=== PATIENT | female | born 1970 | race Caucasian/White ===

== ENCOUNTER 2017-08-25 00:15 | Emergency (ER) | payer OTHER, BC, SELFPAY ==
[2017-08-25 00:18] VITALS: BP 147/74; PULSE 93; RESP 16; TEMP 36.3; O2SAT 98; BMI 23.0
--- NOTE | 2017-08-25 00:52 | ED.RN ---
this rn went to see pt. corporate care worker at bedside. will return to bedside shortly.
--- NOTE | 2017-08-25 01:39 | RAD_ITS ---
STUDY: X-RAY - LEFT HAND REASON FOR EXAM: Female, 47 years old. Pain left thumb. TECHNIQUE: 3 view(s) of the hand. COMPARISON: None. FINDINGS: Normal radiocarpal articulation. Normal distal radioulnar joint. Normal visualized carpal bones. Normal carpal articulations Normal carpometacarpal articulation of the thumb. Normal second through fifth carpometacarpal joints. Normal metacarpi. Normal metacarpophalangeal joint of the thumb. Normal interphalangeal joint of the thumb. Normal proximal and distal phalanges of the thumb. Normal metacarpophalangeal joints of the second through fifth fingers. Normal proximal and distal interphalangeal joints of the second through fifth fingers. Normal phalanges of the second through fifth fingers. The soft tissue structures are unremarkable. RAD/Hand Min 3 Views IMPRESSION: Normal x-ray examination of the hand. The thumb is normal. Electronically Signed: Lewis Parikh MD at 2:57 EDT , Service support ,
[2017-08-25] MEDS: Acetaminophen 500 MG Tablet 1000 MG PO (02:17)
--- NOTE | 2017-08-25 02:46 | ED.DCSUM_ITS ---
- ER Visit Summary Date of Service: 08/25/17 Chief Complaint: Left thumb pain History of Present Illness: The patient is a 47 F who presents with left thumb pain. She was at work. Her thumb was pulled between to compare bouts. She denies paresthesias weakness or loss of function. Her pain is sharp. Physical Examination: Afebrile vitals unremarkable Heart regular No respiratory distress Normal inspection of the left thumb I do not appreciate soft tissue swelling abrasions or lacerations she has brisk capillary refill normal sensation distally to light touch she has limited range of motion due to pain but is able to partially flex at the MCP and interphalangeal joint Test Results: Hand x-ray on my review shows no fracture. Emergency Department Course and Treatment: Patient was given a thumb splint. She was advised on rest ice elevation and anti-inflammatory use. She will follow-up with corporate care and was discharged home. Treatment Plan: [] Disposition: Discharge Impression: Left thumb sprain This note was generated with [employer]er[employer] dictation software. It may contain incorrect words, spelling, and punctuation that were not noted in review of the chart prior to signing ED Disposition - Plan for ED Patient: Chief Complaint: Upper Extremity Injury Referrals: Jaime Blevins NP-C [Primary Care Provider] -
--- NOTE | 2017-08-25 02:46 | ED.DEP ---
ED Disposition - Plan for ED Patient: Chief Complaint: Upper Extremity Injury Instructions: ED Sprain Finger Referrals: Jaime Blevins, SYD-C [Primary Care Provider] - [facility] [GROUP OF PHYSICIANS] -
[2017-08-25 03:00] VITALS: PULSE 89; RESP 14; O2SAT 97
== END 2017-08-25 03:02 | disposition home or self-care (01) ==
LOC: ED 01:51
PROVIDERS: Emergency Provider Emergency Medicine; Family Provider Nurse Practitioner Family; PCP Nurse Practitioner Family
DX: S63.602A Unspecified sprain of left thumb, initial encounter (principal); X50.9XXA Other and unspecified overexertion or strenuous movements or postures, initial encounter; Y93.9 Activity, unspecified; Y92.9 Unspecified place or not applicable; Y99.0 Civilian activity done for income or pay; I10 Essential (primary) hypertension; Z72.0 Tobacco use; Z79.899 Other long term (current) drug therapy
CPT/HCPCS: 73130; 99282

== ENCOUNTER → 2017-10-06 06:27 | Outpatient (CLI) | payer BC, SELFPAY ==
--- NOTE | 2017-10-06 10:32 | NEURO ---
NCS and/or EMG Patient Report Ordering Doctor: Jaime Blevins DATE OF SERVICE: 10/06/17 This is a bilateral upper extremity nerve conduction study and a right upper extremity EMG performed on this 47-year-old female with a history of pain and weakness for 6-12 months mostly in the metacarpal joints. On examination she does have reproducible pain on palpation of her metacarpal joints in her right hand. She does say symptoms are worse on the right side. Bilateral upper extremity sensory and motor nerve conduction study is performed. There is mild prolongation of the median motor and sensory distal latencies with preservation of amplitudes and conduction velocities bilaterally symmetrically. The ulnar motor and sensory and radial sensory responses are normal. The median F-wave latencies are mildly prolonged compared to the ulnar F wave latencies. Right upper extremity needle electromyography is performed. Muscles evaluated included the abductor pollicis brevis, brachioradialis, biceps, triceps and deltoid muscles. All muscles demonstrated normal insertional activity with absence of pathologic spontaneous activity. Motor unit potential recruitment pattern and amplitude is normal in all muscles tested. Impression there is evidence of very mild carpal tunnel syndrome bilaterally at the wrist however this does not appear to be a clinically significant finding and should be correlated.
== END ==
PROVIDERS: Family Provider Nurse Practitioner Family; PCP Nurse Practitioner Family; Visit Provider Nurse Practitioner Family
DX: G56.03 Carpal tunnel syndrome, bilateral upper limbs (principal)
CPT/HCPCS: 95886; 95912